=== PATIENT | female | born 1955 | race Caucasian/White ===

== ENCOUNTER 2023-01-22 13:44 | Outpatient (REF) | payer MEDICARE, SELFPAY ==
[2023-01-22 14:41] LABS: MANUAL DIFF FLAG NO
[2023-01-22 15:17] LABS: Basophils Percent Auto 0.6 % (0-2); Eosinophils Absolute Auto 0.3 X10*3/uL (0.0-0.4); Hematocrit 44.4 % (37.0-47.0); Hemoglobin 14.5 g/dl (12.0-16.0); Imm Gran Abs Auto 0.02 X10*3/uL (0.00-0.03); Imm Gran Pct Auto 0.3 % (0.0-0.4); Lymphocytes Absolute Auto 1.7 X10*3/uL (1.2-4.9); Lymphocytes Percent Auto 25.9 % (20-40); Mean Corpuscular HGB Conc 32.7 g/dl (31.0-35.0); Mean Corpuscular Hemoglobin 30.1 pg (27.0-33.0); Mean Corpuscular Volume 92.3 fL (80.0-98.0); Mean Platelet Volume 10.9 fL (9.4-12.3); Monocytes Absolute Auto 0.7 X10*3/uL (0.1-1.2); Monocytes Percent Auto 10.5 % (2-11); Neutrophils Absolute Auto 3.9 x10*3/uL (2.0-8.3); Neutrophils Percent Auto 58.7 % (45-73); Platelet Count 307 X10*3/uL (160-400); Red Blood Count 4.81 X10*6/uL (4.20-5.50); Red Cell Distribution Width 12.8 % (11.0-16.0); White Blood Count 6.6 X10*3/uL (4.8-10.8)
== END 2023-01-22 13:45 | disposition home or self-care (01) ==
LOC: HO.LAB 13:44
PROVIDERS: Visit Provider Internal Medicine Pulmonary Disease
DX: J45.50 Severe persistent asthma, uncomplicated (principal); Z87.891 Personal history of nicotine dependence; Z91.09 Other allergy status, other than to drugs and biological substances
CPT/HCPCS: 36415; 82785; 85025; 86003; 99202

== ENCOUNTER 2023-02-06 08:48 | Outpatient (REF) | payer MEDICARE, SELFPAY ==
--- NOTE | 2023-02-06 09:50 | PFT_ITS ---
FINDINGS: Forced vital capacity 93%, FEV1 80%, FEV1/FVC ratio is 66. [id number] is 54% and MVV is 82%. After bronchodilator therapy, there is a minimal improvement in LOB45-34. Total lung capacity 93% and residual volume 86%. Diffusion capacity 82%. CONCLUSION: There seems to be a very mild degree of small airway obstructive disorder, which improves after bronchodilator therapy. Otherwise, the pulmonary function tests seemed to be within normal range. Clinical correlation recommended. MD JOHANA Lee/JAIME / [id number]
== END 2023-02-06 08:49 | disposition home or self-care (01) ==
LOC: HO.RESP 08:48
PROVIDERS: Visit Provider Internal Medicine Pulmonary Disease
DX: J45.909 Unspecified asthma, uncomplicated (principal)
CPT/HCPCS: 94060; 94727; 94729

== ENCOUNTER → 2023-02-06 09:50 | Outpatient (BNV) | payer MEDICARE, SELFPAY | PROVIDERS: Visit Provider Internal Medicine | DX: J45.909 Unspecified asthma, uncomplicated (principal) | CPT/HCPCS: 94060; 94727; 94729 ==

== ENCOUNTER 2023-02-11 09:13 | Outpatient (AMB) | payer MEDICARE, SELFPAY ==
[2023-02-11 09:20] VITALS: BP 112/70; PULSE 73; O2SAT 97; BMI 35.2
--- NOTE | 2023-02-11 09:20 | MHC.OFFVIS ---
Intake Vital Signs 02/11/23 09:20 Height 5 ft 6 in Weight 218 lb BMI 35.2 BP 112/70 Blood Pressure Location Lt brachial Position Standing Pulse 73 Pulse Source Pulse Oximeter Pulse Oximetry (%) 97 Oxygen Delivery Method Room Air Intake Visit Reasons: asthma Intake Note: pt is here for follow up of ER and PFT that she had last week, and she states she is feeling great today Clinic Lpn Required: No Allergies metoclopramide [From Reglan] Allergy (Unknown, Verified 02/11/23 09:26) Unknown HPI asthma HPI Details 67-year-old lady, former smoker, quit 20 years prior, with underlying history of severe persistent asthma with prior hospitalizations and 1 intubation, previously followed by her primary, now referred for further asthma care.? Patient states that her symptoms a usually well controlled on Advair 500 and albuterol MDI.? She gets up to for exacerbations per year for which she usually requires prednisone and sometimes ER visits.?She does have a cat, a dog, and chickens.? She has no information of family medical history on her father's side.? 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 After the last office visit patient continued on Advair 500 and albuterol MDI with good control of his symptoms. She has completed her pulmonary function tests that shows underlying controlled asthma. He RAST was positive for mild level of allergies to cat and mold. She denies any recent exacerbations. [facility] Social History (Updated 02/11/23 @ 09:27 by Nory Guzman FOR[facility]LY [facility]) Patient Tobacco Use Status: Former Tobacco user Review of Systems Const Denies daytime sleepiness, Denies excessive sweating, Denies fatigue, Denies fever(s), Denies lethargy, Denies malaise, Denies night sweats, Denies snoring and Denies weight loss Eyes Denies blurry vision and Denies itchy eyes ENT Denies nasal congestion, Denies post nasal drip, Denies sinus pain, Denies sinus pressure and Denies other ( Thrush) Card Denies chest pain, Denies pedal edema, Denies dyspnea, Denies orthopnea and Denies paroxysmal nocturnal dyspnea Resp Denies cough, Denies hemoptysis, Denies excessive phlegm production, Denies dyspnea, Denies snoring and Denies wheezing GI Denies abdominal pain and Denies heartburn Musc Denies myalgias, Denies arthralgias and Denies joint swelling Skin/Breast Denies rash Neuro Denies memory loss and Denies seizure-like activity Psych Denies abnormal sleep pattern, Denies anxiety and Denies memory loss Endo Denies excessive sweating, Denies fatigue and Denies heat intolerance Mitchell/Lymph Denies easy bruising Aller/Immun Denies itchy eyes, Denies seasonal rhinorrhea and Denies wheezing Physical Exam Vital Signs: Last Vital Signs Pulse 73 02/11/23 09:20 BP 112/70 02/11/23 09:20 Pulse Ox 97 02/11/23 09:20 Oxygen Delivery Method Room Air 02/11/23 09:20 BMI result Body Mass Index 35.2 Const General: no acute distress and alert Nutritional Appearance: not obese Orientation/consciousness: Other orientation findings ( oriented) HEENT Head: Yes atraumatic Eyes General: appearance normal, both eyes and all related structures Sclerae: sclerae normal EOM: EOMs intact bilaterally Neck Neck: Yes supple Lymphatic: no lymphadenopathy noted Resp Effort & Inspection: normal respiratory effort and no use of accessory muscles Auscultation: clear to auscultation bilaterally Cardio Rate: regular rate Rhythm: regular rhythm Heart sounds: no gallops, no murmurs and no rubs Skin General skin exam: other ( warm) Extrem General: No clubbing, No cyanosis and No edema Assessment & Plan Assessment & Plan (1) Asthma: Code(s): J45.909 - Unspecified asthma, uncomplicated Plan: Now well controlled on Advair 500 and albuterol MDI. Continue current regimen. (2) Environmental allergies: Code(s): Z91.09 - Other allergy status, other than to drugs and biological substances Plan: Results of IgE, CBC with differential, and RAST panel reviewed. Underlying mild allergies to cats and mold. Will continue to monitor clinically at this time. Coding Level of Care Code Est Pt Level 4 (62550) Diagnoses Asthma J45.909 Environmental allergies Z91.09
== END 2023-02-11 09:38 | disposition home or self-care (01) ==
PROVIDERS: PCP Internal Medicine; Visit Provider Internal Medicine Pulmonary Disease
DX: J45.909 Unspecified asthma, uncomplicated (principal); Z91.09 Other allergy status, other than to drugs and biological substances
CPT/HCPCS: 99214

== ENCOUNTER → 2023-02-11 09:13 | Outpatient (BNVA) | payer MEDICARE, SELFPAY | PROVIDERS: Visit Provider Internal Medicine Pulmonary Disease | DX: J45.909 Unspecified asthma, uncomplicated (principal); Z91.09 Other allergy status, other than to drugs and biological substances | CPT/HCPCS: 99212 ==

== ENCOUNTER 2023-09-23 11:00 | Outpatient (AMB) | payer MEDICARE, SELFPAY ==
[2023-09-23 11:03] VITALS: BP 122/87; PULSE 84; O2SAT 98; BMI 31.3
--- NOTE | 2023-09-23 11:03 | MHC.OFFVIS ---
Intake Vital Signs 09/23/23 11:03 Height 5 ft 6 in Weight 194 lb BMI 31.3 BP 122/87 Blood Pressure Location Lt brachial Position Sitting Pulse 84 Pulse Source Doppler Pulse Oximetry (%) 98 Oxygen Delivery Method Room Air Intake Visit Reasons: asthma Allergies metoclopramide [From Reglan] Allergy (Unknown, Verified 09/23/23 11:05) Unknown HPI asthma HPI Details 68-year-old lady, former smoker, quit 20 years prior, with underlying history of severe persistent asthma with prior hospitalizations and 1 intubation, now followed for underlying asthma and environmental allergies. Patient's symptoms who previously well controlled on Advair 500, however it is discontinued. She has been sent Breo 100. She denies any recent exacerbations. She does have mild allergies to cats, though her symptoms are well controlled on inhaled corticosteroids. [facility] Social History Patient Tobacco Use Status: Former Tobacco user Review of Systems Const Denies daytime sleepiness, Denies excessive sweating, Denies fatigue, Denies fever(s), Denies lethargy, Denies malaise, Denies night sweats, Denies snoring and Denies weight loss Eyes Denies blurry vision and Denies itchy eyes ENT Denies nasal congestion, Denies post nasal drip, Denies sinus pain, Denies sinus pressure and Denies other ( Thrush) Card Denies chest pain, Denies pedal edema, Denies dyspnea, Denies orthopnea and Denies paroxysmal nocturnal dyspnea Resp Denies cough, Denies hemoptysis, Denies excessive phlegm production, Denies dyspnea, Denies snoring and Denies wheezing GI Denies abdominal pain and Denies heartburn Musc Denies myalgias, Denies arthralgias and Denies joint swelling Skin/Breast Denies rash Neuro Denies memory loss and Denies seizure-like activity Psych Denies abnormal sleep pattern, Denies anxiety and Denies memory loss Endo Denies excessive sweating, Denies fatigue and Denies heat intolerance Mitchell/Lymph Denies easy bruising Aller/Immun Denies itchy eyes, Denies seasonal rhinorrhea and Denies wheezing Physical Exam Vital Signs: Last Vital Signs Pulse 84 09/23/23 11:03 BP 122/87 09/23/23 11:03 Pulse Ox 98 09/23/23 11:03 Oxygen Delivery Method Room Air 09/23/23 11:03 BMI result Body Mass Index 31.3 Const General: no acute distress and alert Nutritional Appearance: not obese Orientation/consciousness: Other orientation findings ( oriented) HEENT Head: Yes atraumatic Eyes General: appearance normal, both eyes and all related structures Sclerae: sclerae normal EOM: EOMs intact bilaterally Neck Neck: Yes supple Lymphatic: no lymphadenopathy noted Resp Effort & Inspection: normal respiratory effort and no use of accessory muscles Auscultation: clear to auscultation bilaterally Cardio Rate: regular rate Rhythm: regular rhythm Heart sounds: no gallops, no murmurs and no rubs Skin General skin exam: other ( warm) Extrem General: No clubbing, No cyanosis and No edema Assessment & Plan Assessment & Plan (1) Asthma: Code(s): J45.909 - Unspecified asthma, uncomplicated Plan: Previously well controlled on Advair 500 and albuterol MDI. Now has to be switched to Breo 200 secondary to Advair discontinuation. Continue albuterol MDI. (2) Environmental allergies: Code(s): Z91.09 - Other allergy status, other than to drugs and biological substances Plan: Mild environmental allergies now well controlled on inhaled corticosteroids. If stops being controlled, will consider Xolair. Medications: New Breo Ellipta 200-25 mcg/dose (fluticasone furoate-vilanterol) 1 inh inhalation DAILY 1 ea 6RF 30 days NS Discontinued Symbicort 160-4.5 mcg/actuation (budesonide-formoterol) Discontinued Reason: Duplicate 2 puffs inhalation BID 30 days 10.2 grams 6RF NS Coding Level of Care Code Est Pt Level 4 (82913) Diagnoses Asthma J45.909 Environmental allergies Z91.09
== END 2023-09-23 11:24 | disposition home or self-care (01) ==
PROVIDERS: PCP Internal Medicine; Visit Provider Internal Medicine Pulmonary Disease
DX: J45.909 Unspecified asthma, uncomplicated (principal); Z91.09 Other allergy status, other than to drugs and biological substances
CPT/HCPCS: 99214

== ENCOUNTER → 2023-09-23 11:00 | Outpatient (BNVA) | payer MEDICARE, SELFPAY | PROVIDERS: PCP Internal Medicine; Visit Provider Internal Medicine Pulmonary Disease | DX: J45.909 Unspecified asthma, uncomplicated (principal); Z91.09 Other allergy status, other than to drugs and biological substances | CPT/HCPCS: 99212 ==

== ENCOUNTER 2024-03-29 11:26 | Outpatient (AMB) | payer MEDICARE, SELFPAY ==
[2024-03-29 11:34] VITALS: BP 118/67; PULSE 79; O2SAT 99; BMI 28.3
--- NOTE | 2024-03-29 11:34 | MHC.OFFVIS ---
Vital Signs 03/29/24 11:34 Height 5 ft 6 in Weight 175 lb 4.28 oz BMI 28.3 BP 118/67 Blood Pressure Location Lt brachial Position Sitting Pulse 79 Pulse Source Doppler Pulse Oximetry (%) 99 Oxygen Delivery Method Room Air Intake Visit Reasons: Asthma Allergies metoclopramide [From Reglan] Allergy (Unknown, Verified 09/23/23 11:05) Unknown HPI HPI Asthma: Details: 68-year-old lady, former smoker, quit 20 years prior, with underlying history of severe persistent asthma with prior hospitalizations and 1 intubation, now followed for underlying asthma and environmental allergies. Patient's symptoms who previously well controlled on Advair 500, however it is discontinued. She has been switched to Breo 200 with excellent control her symptoms. She denies recent exacerbations. [facility] Social History Patient Tobacco Use Status: Former Tobacco user Review of Systems Const Denies daytime sleepiness, Denies excessive sweating, Denies fatigue, Denies fever(s), Denies lethargy, Denies malaise, Denies night sweats, Denies snoring and Denies weight loss Eyes Denies blurry vision and Denies itchy eyes ENT Denies nasal congestion, Denies post nasal drip, Denies sinus pain, Denies sinus pressure and Denies other ( Thrush) Card Denies chest pain, Denies pedal edema, Denies dyspnea, Denies orthopnea and Denies paroxysmal nocturnal dyspnea Resp Denies cough, Denies hemoptysis, Denies excessive phlegm production, Denies dyspnea, Denies snoring and Denies wheezing GI Denies abdominal pain and Denies heartburn Musc Denies myalgias, Denies arthralgias and Denies joint swelling Skin/Breast Denies rash Neuro Denies memory loss and Denies seizure-like activity Psych Denies abnormal sleep pattern, Denies anxiety and Denies memory loss Endo Denies excessive sweating, Denies fatigue and Denies heat intolerance Mitchell/Lymph Denies easy bruising Aller/Immun Denies itchy eyes, Denies seasonal rhinorrhea and Denies wheezing Physical Exam Vital Signs: Last Vital Signs Pulse 79 03/29/24 11:34 BP 118/67 03/29/24 11:34 Pulse Ox 99 03/29/24 11:34 Oxygen Delivery Method Room Air 03/29/24 11:34 BMI result Body Mass Index 28.3 Const General: no acute distress and alert Nutritional Appearance: not obese Orientation/consciousness: Other orientation findings ( oriented) HEENT Head: Yes atraumatic Eyes General: appearance normal, both eyes and all related structures Sclerae: sclerae normal EOM: EOMs intact bilaterally Neck Neck: Yes supple Lymphatic: no lymphadenopathy noted Resp Effort & Inspection: normal respiratory effort and no use of accessory muscles Auscultation: clear to auscultation bilaterally Cardio Rate: regular rate Rhythm: regular rhythm Heart sounds: no gallops, no murmurs and no rubs Skin General skin exam: other ( warm) Extrem General: No clubbing, No cyanosis and No edema Assessment & Plan Assessment & Plan (1) Asthma: Code(s): J45.909 - Unspecified asthma, uncomplicated Category: Medical Plan: Well controlled on Breo and albuterol MDI. Continue current regimen. Coding Level of Care Code Est Pt Level 3 (60693) Diagnoses Asthma J45.909
== END 2024-03-29 11:55 | disposition home or self-care (01) ==
PROVIDERS: PCP Internal Medicine; Visit Provider Internal Medicine Pulmonary Disease
DX: J45.909 Unspecified asthma, uncomplicated (principal)
CPT/HCPCS: 99213

== ENCOUNTER → 2024-03-29 11:26 | Outpatient (BNVA) | payer MEDICARE, SELFPAY | PROVIDERS: PCP Internal Medicine; Visit Provider Internal Medicine Pulmonary Disease | DX: J45.909 Unspecified asthma, uncomplicated (principal) | CPT/HCPCS: 99212 ==

== ENCOUNTER 2024-06-21 11:24 | Outpatient (AMB) | payer MEDICARE, SELFPAY ==
--- NOTE | 2024-06-21 11:28 | A.OFFVIS_ITS ---
Vital Signs 06/21/24 11:35 Height 5 ft 6 in Weight 167 lb BMI 27.0 BP 114/62 Blood Pressure Location Rt brachial Position Sitting Pulse 88 Pulse Source Doppler Pulse Oximetry (%) 93 Oxygen Delivery Method Room Air Intake Visit Reasons: Cough increasing wheezing Allergies metoclopramide [From Reglan] Allergy (Unknown, Verified 09/23/23 11:05) Unknown HPI HPI Cough increasing wheezing: Details: 68-year-old lady, former smoker, quit 20 years prior, with underlying history of severe persistent asthma with prior hospitalizations and 1 intubation, now followed for underlying asthma and environmental allergies. Symptoms usually controlled on Breo and albuterol MDI, though today she complains of an acute exacerbation with bronchitic symptoms. Patient is also interested in better control of underlying environmental component. [facility] Social History Patient Tobacco Use Status: Former Tobacco user Review of Systems Const Denies daytime sleepiness, Denies excessive sweating, Denies fatigue, Denies fever(s), Denies lethargy, Denies malaise, Denies night sweats, Denies snoring and Denies weight loss Eyes Denies blurry vision and Denies itchy eyes ENT Denies nasal congestion, Denies post nasal drip, Denies sinus pain, Denies sinus pressure and Denies other ( Thrush) Card Denies chest pain, Denies pedal edema, Denies dyspnea, Denies orthopnea and Denies paroxysmal nocturnal dyspnea Resp Reports cough, Denies hemoptysis, Denies excessive phlegm production, Denies dyspnea, Denies snoring and Denies wheezing GI Denies abdominal pain and Denies heartburn Musc Denies myalgias, Denies arthralgias and Denies joint swelling Skin/Breast Denies rash Neuro Denies memory loss and Denies seizure-like activity Psych Denies abnormal sleep pattern, Denies anxiety and Denies memory loss Endo Denies excessive sweating, Denies fatigue and Denies heat intolerance Mitchell/Lymph Denies easy bruising Aller/Immun Denies itchy eyes, Denies seasonal rhinorrhea and Denies wheezing Physical Exam Vital Signs: Last Vital Signs Pulse 88 06/21/24 11:35 BP 114/62 06/21/24 11:35 Pulse Ox 93 06/21/24 11:35 Oxygen Delivery Method Room Air 06/21/24 11:35 BMI result Body Mass Index 27.0 Const General: no acute distress and alert Nutritional Appearance: not obese Orientation/consciousness: Other orientation findings ( oriented) HEENT Head: Yes atraumatic Eyes General: appearance normal, both eyes and all related structures Sclerae: sclerae normal EOM: EOMs intact bilaterally Neck Neck: Yes supple Lymphatic: no lymphadenopathy noted Resp Effort & Inspection: normal respiratory effort and no use of accessory muscles Auscultation: rales (Bilateral) Cardio Rate: regular rate Rhythm: regular rhythm Heart sounds: no gallops, no murmurs and no rubs Skin General skin exam: other ( warm) Extrem General: No clubbing, No cyanosis and No edema Assessment & Plan Assessment & Plan (1) Asthma: Code(s): J45.909 - Unspecified asthma, uncomplicated Category: Medical Plan: Now with an acute bronchitic exacerbation, will treat with course of Levaquin. Continue baseline regimen of Breo and albuterol MDI. (2) Environmental allergies: Code(s): Z91.09 - Other allergy status, other than to drugs and biological substances Category: Medical Plan: Will obtain IgE level, CBC with differential, and RAST panel for further evaluation. Orders: Orders Complete Blood Count Auto Diff Today Z91.09 - Other allergy status, other than to drugs and biological substances Resp Allergy Profile Region I Today Z91.09 - Other allergy status, other than to drugs and biological substances Medications: New levofloxacin 750 mg PO DAILY 7 tabs 0RF J45.909 - Unspecified asthma, uncomplicated Coding Level of Care Code Est Pt Level 4 (56047) Complex EM visit Add On G2211 Diagnoses Asthma J45.909 Environmental allergies Z91.09
[2024-06-21 11:35] VITALS: BP 114/62; PULSE 88; O2SAT 93; BMI 27.0
== END 2024-06-21 11:51 | disposition home or self-care (01) ==
PROVIDERS: PCP Internal Medicine; Visit Provider Internal Medicine Pulmonary Disease
DX: J45.909 Unspecified asthma, uncomplicated (principal); Z91.09 Other allergy status, other than to drugs and biological substances
CPT/HCPCS: 99214; G2211

== ENCOUNTER 2024-06-21 11:24 | Outpatient (REF) | payer MEDICARE, SELFPAY ==
[2024-06-21 12:09] LABS: MANUAL DIFF FLAG NO
[2024-06-21 12:59] LABS: Basophils Percent Auto 0.6 % (0-2); Eosinophils Percent Auto 14.1 % (0-4); Imm Gran Abs Auto 0.01 X10*3/uL (0.00-0.03); Imm Gran Pct Auto 0.1 % (0.0-0.4); Lymphocytes Absolute Auto 1.2 X10*3/uL (1.2-4.9); Lymphocytes Percent Auto 17.8 % (20-40); Mean Corpuscular HGB Conc 32.6 g/dl (31.0-35.0); Mean Corpuscular Hemoglobin 30.9 pg (27.0-33.0); Mean Corpuscular Volume 94.9 fL (80.0-98.0); Mean Platelet Volume 11.5 fL (9.4-12.3); Monocytes Absolute Auto 0.5 X10*3/uL (0.1-1.2); Monocytes Percent Auto 7.9 % (2-11); Neutrophils Absolute Auto 4.1 x10*3/uL (2.0-8.3); Neutrophils Percent Auto 59.5 % (45-73); Platelet Count 294 X10*3/uL (160-400); Red Blood Count 4.53 X10*6/uL (4.20-5.50); Red Cell Distribution Width 13.2 % (11.0-16.0); White Blood Count 6.9 X10*3/uL (4.8-10.8)
[2024-06-22 19:53] LABS: Class Alternaria alternata 0; Class Aspergillus fumigatus 0/1; Class Bermuda Grass 0; Class Birch 0; Class Cat Dander 0/1; Class Cladosporium herbarum 0; Class Cockroach 0; Class Common Ragweed 0; Class Cottonwood 0; Class Derm. pterony 0; Class Dermatophagoides farinae 0; Class Dog Dander 0; Class Elm 0; Class Maple Box Elder 0; Class Mountain Cedar 0; Class Mouse Urine Protein 0; Class Mugwort 0; Class Oak 0; Class Penicillium crysogenum 0; Class Rough Pigweed 0; Class Sheep Sorrel 0; Class Sycamore 0; Class Timothy Grass 0; Class Walnut Tree 0; Class White Ash 0; Class White Mulberry 0; D001 IgE D pteronyssinus <0.10 kU/L; D002 - IgE D farinae <0.10 kU/L; E001 - IgE Cat Dander 0.16 kU/L; E005 - IgE Dog Dander <0.10 kU/L; E072-IgE Mouse Urine <0.10 kU/L; G002 IgE Bermuda Grass <0.10 kU/L; G006 - IgE Timothy Grass <0.10 kU/L; I006-IgE Cockroach, German <0.10 kU/L; Immunoglobulin E 27 kU/L (<OR=114); M001 IgE Penicillium chrysogen <0.10 kU/L; M002 - IgE Cladosporium herbar <0.10 kU/L; M003 - IgE Aspergillus fumigat 0.16 kU/L; M006 - IgE Alternaria alternat <0.10 kU/L; T001 IgE Maple/Box Elder <0.10 kU/L; T003 IgE Common Silver Birch <0.10 kU/L; T006 - IgE Cedar, Mountain <0.10 kU/L; T007 - IgE Oak, White <0.10 kU/L; T008 IgE Elm, American <0.10 kU/L; T010 - IgE Walnut <0.10 kU/L; T011 - IgE Maple Leaf Sycamore <0.10 kU/L; T014 - IgE Cottonwood <0.10 kU/L; T015 - IgE Ash, White <0.10 kU/L; T070 - IgE White Mulberry <0.10 kU/L; W001 - IgE Ragweed, Short <0.10 kU/L; W006 - IgE Mugwort <0.10 kU/L; W014 IgE Pigweed, Common <0.10 kU/L; W018 IgE Sheep Sorrel <0.10 kU/L
== END 2024-06-21 11:25 | disposition home or self-care (01) ==
LOC: HO.LAB 11:24
PROVIDERS: PCP Internal Medicine; Visit Provider Internal Medicine Pulmonary Disease
DX: Z91.09 Other allergy status, other than to drugs and biological substances (principal); J45.909 Unspecified asthma, uncomplicated
CPT/HCPCS: 36415; 82785; 85025; 86003; 99212

== ENCOUNTER 2024-07-11 09:27 | Outpatient (AMB) | payer MEDICARE, SELFPAY ==
[2024-07-11 09:42] VITALS: BP 120/64; PULSE 71; O2SAT 97
--- NOTE | 2024-07-11 09:42 | MHC.OFFVIS ---
Vital Signs 07/11/24 09:42 BP 120/64 Blood Pressure Location Rt brachial Position Sitting Pulse 71 Pulse Source Pulse Oximeter Pulse Oximetry (%) 97 Oxygen Delivery Method Room Air Intake Visit Reasons: Dupixent Teaching Allergies metoclopramide [From Reglan] Allergy (Unknown, Verified 07/11/24 09:42) Unknown Medication List - Last Reconciled 07/11/24 by Kym Hdz LPN albuterol sulfate 90 mcg/actuation 2 inhalations inhalation Q6H PRN atorvastatin 10 mg PO DAILY Breo Ellipta 200-25 mcg/dose (fluticasone furoate-vilanterol) 1 inh inhalation DAILY 90 days NS dupilumab (Dupixent) 300 mg (2 mL) subcut Q2W levofloxacin 750 mg PO DAILY valacyclovir (Valtrex) 500 mg PO DAILY PRN HPI HPI Dupixent Teaching: Details: Chloé is here for a Dupixent teach she was educated on hand washing, injection preparation, administration, and disposal.?Chloé was able to return demonstrate proper technique for hand washing, injection preparation, administration and disposal of needle and states she has no questions at this time. Medication Dupixent 300mg/2mL pre-filled pen (patient?s own meds) Loading dose of 600mg given by the patient in 2 SQ injections; injection #1 L thigh;? injection #2 R thigh Lot# [id number] expires 09/30/2025. Patient aware her next injection is in 15 days. Nurse visit only.? [facility] Social History Patient Tobacco Use Status: Former Tobacco user Physical Exam Vital Signs: Last Vital Signs Pulse 71 07/11/24 09:42 BP 120/64 07/11/24 09:42 Pulse Ox 97 07/11/24 09:42 Oxygen Delivery Method Room Air 07/11/24 09:42 Assessment & Plan Assessment & Plan (1) Asthma: Code(s): J45.909 - Unspecified asthma, uncomplicated Category: Medical Plan: Dupixent teaching Coding Level of Care Code Established Pt Est Pt Level 1 (64822) Patient Type Established Diagnoses Asthma J45.909 Comment NURSE VISIT ONLY
== END 2024-07-11 09:45 | disposition home or self-care (01) ==
PROVIDERS: PCP Internal Medicine; Visit Provider Internal Medicine Pulmonary Disease
DX: J45.909 Unspecified asthma, uncomplicated (principal)

== ENCOUNTER → 2024-07-11 09:27 | Outpatient (BNVA) | payer MEDICARE, SELFPAY | PROVIDERS: PCP Internal Medicine; Visit Provider Internal Medicine Pulmonary Disease | DX: J45.909 Unspecified asthma, uncomplicated (principal) | CPT/HCPCS: 99211 ==

== ENCOUNTER 2024-07-19 15:32 | Outpatient (AMB) | payer MEDICARE, SELFPAY ==
[2024-07-19 15:41] VITALS: BP 104/62; PULSE 82; TEMP 37.9; O2SAT 92; BMI 26.5
--- NOTE | 2024-07-19 15:41 | MHC.OFFVIS ---
Vital Signs 07/19/24 15:41 Height 5 ft 6 in Weight 164 lb 3.91 oz BMI 26.5 BP 104/62 Blood Pressure Location Rt brachial Position Sitting Pulse 82 Pulse Source Doppler Temp 100.2 F Temp Source Temporal Artery Scan Pulse Oximetry (%) 92 Oxygen Delivery Method Room Air Intake Visit Reasons: persistent cough Allergies metoclopramide [From Reglan] Allergy (Unknown, Verified 07/19/24 15:46) Unknown HPI HPI persistent cough: Details: 68-year-old lady, former smoker, quit 20 years prior, with underlying history of severe persistent asthma with prior hospitalizations and 1 intubation, now followed for underlying asthma and environmental allergies. Symptoms usually controlled on Breo and albuterol MDI, though she has been having cough productive of yellowish to greenish sputum over the last 3 months with poor response to initial course of Levaquin. She also has been started on Dupixent and had 1 injection so far. [facility] Social History Patient Tobacco Use Status: Former Tobacco user Review of Systems Const Denies daytime sleepiness, Denies excessive sweating, Denies fatigue, Denies fever(s), Denies lethargy, Denies malaise, Denies night sweats, Denies snoring and Denies weight loss Eyes Denies blurry vision and Denies itchy eyes ENT Denies nasal congestion, Denies post nasal drip, Denies sinus pain, Denies sinus pressure and Denies other ( Thrush) Card Denies chest pain, Denies pedal edema, Denies dyspnea, Denies orthopnea and Denies paroxysmal nocturnal dyspnea Resp Reports cough, Denies hemoptysis, Reports excessive phlegm production, Denies dyspnea, Denies snoring and Reports wheezing GI Denies abdominal pain and Denies heartburn Musc Denies myalgias, Denies arthralgias and Denies joint swelling Skin/Breast Denies rash Neuro Denies memory loss and Denies seizure-like activity Psych Denies abnormal sleep pattern, Denies anxiety and Denies memory loss Endo Denies excessive sweating, Denies fatigue and Denies heat intolerance Mitchell/Lymph Denies easy bruising Aller/Immun Denies itchy eyes, Denies seasonal rhinorrhea and Reports wheezing Physical Exam Vital Signs: Last Vital Signs Temp 100.2 F 07/19/24 15:41 Pulse 82 07/19/24 15:41 BP 104/62 07/19/24 15:41 Pulse Ox 92 07/19/24 15:41 Oxygen Delivery Method Room Air 07/19/24 15:41 BMI result Body Mass Index 26.5 Const General: no acute distress and alert Nutritional Appearance: not obese Orientation/consciousness: Other orientation findings ( oriented) HEENT Head: Yes atraumatic Eyes General: appearance normal, both eyes and all related structures Sclerae: sclerae normal EOM: EOMs intact bilaterally Neck Neck: Yes supple Lymphatic: no lymphadenopathy noted Resp Effort & Inspection: normal respiratory effort and no use of accessory muscles Auscultation: clear to auscultation bilaterally Cardio Rate: regular rate Rhythm: regular rhythm Heart sounds: no gallops, no murmurs and no rubs Skin General skin exam: other ( warm) Extrem General: No clubbing, No cyanosis and No edema Assessment & Plan Assessment & Plan (1) Asthma: Code(s): J45.909 - Unspecified asthma, uncomplicated Category: Medical Plan: Start on Dupixent but only had 1 injection. Continue on Dupixent, Breo, and albuterol MDI. (2) Chronic cough: Code(s): R05.3 - Chronic cough Category: Medical Plan: Appears to be with ongoing bronchitic exacerbation, will obtain sputum culture. Poor response to initial Levaquin. Will switch to doxycycline. (3) Environmental allergies: Code(s): Z91.09 - Other allergy status, other than to drugs and biological substances Category: Medical Plan: Expect to improve on Dupixent. Orders: Orders Smear for EOS (Nasal/Sputum) Today R05.3 - Chronic cough Medications: New doxycycline monohydrate 100 mg PO BID 20 tabs 0RF doxycycline monohydrate 100 mg PO BID 20 tabs 0RF Discontinued levofloxacin Discontinued Reason: Doctor's Order 750 mg PO DAILY 7 tabs 0RF J45.909 - Unspecified asthma, uncomplicated Coding Level of Care Code Est Pt Level 4 (41862) Complex EM visit Add On G2211 Diagnoses Asthma J45.909 Chronic cough R05.3 Environmental allergies Z91.09
== END 2024-07-19 15:58 | disposition home or self-care (01) ==
PROVIDERS: PCP Internal Medicine; Visit Provider Internal Medicine Pulmonary Disease
DX: J45.909 Unspecified asthma, uncomplicated (principal); R05.3 Chronic cough; Z91.09 Other allergy status, other than to drugs and biological substances
CPT/HCPCS: 99214; G2211

== ENCOUNTER → 2024-07-19 15:32 | Outpatient (BNVA) | payer MEDICARE, SELFPAY | PROVIDERS: PCP Internal Medicine; Visit Provider Internal Medicine Pulmonary Disease | DX: J45.909 Unspecified asthma, uncomplicated (principal); R05.3 Chronic cough; Z91.09 Other allergy status, other than to drugs and biological substances | CPT/HCPCS: 99212 ==

== ENCOUNTER 2024-07-25 15:27 | Outpatient (REF) | payer MEDICARE, SELFPAY ==
[2024-07-26 10:24] LABS: EOS QC POS YES
[2024-07-26 10:25] LABS: EOS Stain Quality OK YES
== END 2024-07-25 15:28 | disposition home or self-care (01) ==
LOC: HO.LNP 15:27
PROVIDERS: Visit Provider Internal Medicine Pulmonary Disease
DX: Z13.89 Encounter for screening for other disorder (principal)

== ENCOUNTER 2024-08-18 10:53 | Outpatient (AMB) | payer MEDICARE, SELFPAY ==
[2024-08-18 10:55] VITALS: BP 114/64; PULSE 73; O2SAT 99; BMI 26.6
--- NOTE | 2024-08-18 10:55 | A.OFFVIS_ITS ---
Vital Signs 08/18/24 10:55 Height 5 ft 6 in Weight 165 lb BMI 26.6 BP 114/64 Blood Pressure Location Rt brachial Position Sitting Pulse 73 Pulse Source Doppler Pulse Oximetry (%) 99 Oxygen Delivery Method Room Air Intake Visit Reasons: Cough Allergies metoclopramide [From Reglan] Allergy (Unknown, Verified 08/18/24 11:01) Unknown HPI HPI Cough: Details: 68-year-old lady, former smoker, quit 20 years prior, with underlying history of severe persistent asthma with prior hospitalizations and 1 intubation, now followed for underlying asthma and environmental allergies. Patient was started on Dupixent significantly improved symptom control. Her most recent exacerbation has resolved started prednisone pulse. She rarely needs to use her Breo and albuterol MDI. [facility] Social History Patient Tobacco Use Status: Former Tobacco user Review of Systems Const Denies daytime sleepiness, Denies excessive sweating, Denies fatigue, Denies fever(s), Denies lethargy, Denies malaise, Denies night sweats, Denies snoring and Denies weight loss Eyes Denies blurry vision and Denies itchy eyes ENT Denies nasal congestion, Denies post nasal drip, Denies sinus pain, Denies sinus pressure and Denies other ( Thrush) Card Denies chest pain, Denies pedal edema, Denies dyspnea, Denies orthopnea and Denies paroxysmal nocturnal dyspnea Resp Denies cough, Denies hemoptysis, Denies excessive phlegm production, Denies dyspnea, Denies snoring and Denies wheezing GI Denies abdominal pain and Denies heartburn Musc Denies myalgias, Denies arthralgias and Denies joint swelling Skin/Breast Denies rash Neuro Denies memory loss and Denies seizure-like activity Psych Denies abnormal sleep pattern, Denies anxiety and Denies memory loss Endo Denies excessive sweating, Denies fatigue and Denies heat intolerance Mitchell/Lymph Denies easy bruising Aller/Immun Denies itchy eyes, Denies seasonal rhinorrhea and Denies wheezing Physical Exam Vital Signs: Last Vital Signs Pulse 73 08/18/24 10:55 BP 114/64 08/18/24 10:55 Pulse Ox 99 08/18/24 10:55 Oxygen Delivery Method Room Air 08/18/24 10:55 BMI result Body Mass Index 26.6 Const General: no acute distress and alert Nutritional Appearance: not obese Orientation/consciousness: Other orientation findings ( oriented) HEENT Head: Yes atraumatic Eyes General: appearance normal, both eyes and all related structures Sclerae: sclerae normal EOM: EOMs intact bilaterally Neck Neck: Yes supple Lymphatic: no lymphadenopathy noted Resp Effort & Inspection: normal respiratory effort and no use of accessory muscles Auscultation: clear to auscultation bilaterally Cardio Rate: regular rate Rhythm: regular rhythm Heart sounds: no gallops, no murmurs and no rubs Skin General skin exam: other ( warm) Extrem General: No clubbing, No cyanosis and No edema Assessment & Plan Assessment & Plan (1) Asthma: Code(s): J45.909 - Unspecified asthma, uncomplicated Category: Medical Plan: Well controlled on current regimen of Dupixent, Breo, and albuterol MDI. Continue current regimen. (2) Environmental allergies: Code(s): Z91.09 - Other allergy status, other than to drugs and biological substances Category: Medical Plan: Well controlled on Dupixent. Continue current regimen. Coding Level of Care Code Est Pt Level 4 (88338) Diagnoses Asthma J45.909 Environmental allergies Z91.09
== END 2024-08-18 11:14 | disposition home or self-care (01) ==
PROVIDERS: PCP Internal Medicine; Visit Provider Internal Medicine Pulmonary Disease
DX: J45.909 Unspecified asthma, uncomplicated (principal); Z91.09 Other allergy status, other than to drugs and biological substances
CPT/HCPCS: 99214

== ENCOUNTER → 2024-08-18 10:53 | Outpatient (BNVA) | payer MEDICARE, SELFPAY | PROVIDERS: PCP Internal Medicine; Visit Provider Internal Medicine Pulmonary Disease | DX: J45.909 Unspecified asthma, uncomplicated (principal); Z91.09 Other allergy status, other than to drugs and biological substances | CPT/HCPCS: 99212 ==